=== PATIENT | male | born 1990 | race Caucasian/White ===

== ENCOUNTER → 2020-10-10 | Outpatient (CLI) | payer OTHER | LOC: COL.PUL 10:00 | DX: R06.02 Shortness of breath (principal) | CPT/HCPCS: J7674 ==

== ENCOUNTER 2020-12-04 07:35 | Outpatient (CLI) | payer OTHER ==
[~2020-12-04] VITALS: Ht 177.8 cm; Wt 100.6 kg
[2020-12-04 08:40] LABS: HEMATOCRIT 49.3 % (42.0-52.0); HEMOGLOBIN 16.7 g/dl (13.5-18.0); MEAN CELL VOLUME 90 fl (80.0-100.0); MEAN CORPUSCULAR HEMOGLOBIN 31 pg (27.0-31.0); MEAN CORPUSCULAR HGB CONC 34 g/dl (33.0-37.0); MEAN PLATELET VOLUME 9.7 fl (7.4-10.4); PLATELET COUNT 314 K/mm3 (130-400); RED BLOOD COUNT 5.46 M/mm3 (4.20-5.60); REDCELL DISTRIBUTION WIDTH-CV 12.7 % (11.5-14.5)
[2020-12-04 08:44] LABS: CALCIUM 9.2 mg/dL (8.4-10.2); CREATININE, serum 1.25 (0.66-1.25); POTASSIUM 4.5 mmol/L (3.4-5.0)
[2020-12-04 08:53] LABS: PROTHROMBIN TIME 11.1 SECONDS (9.7-12.8)
[2020-12-04 09:01] VITALS: BP 131/85; PULSE 70; TEMP 98.4
[2020-12-04] MEDS ORDERED: ZOLOFT 25MG25 MG PO (09:03)
[2020-12-04] MEDS ORDERED: AMITRIPTYLINE H10 M1 PO (09:03)
[2020-12-04 10:10] VITALS: BP 109/70; PULSE 65
--- NOTE | 2020-12-04 10:13 | NUR ---
Report from Isabella Ibarra.
[2020-12-04 10:15] VITALS: BP 108/76; PULSE 52
[2020-12-04 10:30] VITALS: BP 112/73; PULSE 49
[2020-12-04 10:45] VITALS: BP 107/79; PULSE 49
[2020-12-04 11:00] VITALS: BP 111/78; PULSE 48
--- NOTE | 2020-12-04 11:30 | NUR ---
Discharge instructions given to pt.Pt verbalizes understanding.INT removed,catheter tip intact.
--- NOTE | 2020-12-04 11:40 | NUR ---
Pt escorted out via wheelchair by this nurse.
== END 2020-12-04 13:49 | disposition home or self-care (01) ==
LOC: COL.RAD 07:35
PROVIDERS: Internal Medicine Cardiovascular Disease
DX: Q21.1 Atrial septal defect (principal)
CPT/HCPCS: J2704